=== PATIENT | female | born 1965 | race Caucasian/White ===

== ENCOUNTER 2020-02-24 11:23 | Emergency (ER) | payer OTHER ==
[2020-02-24 11:28] VITALS: BP 142/77; PULSE 80; TEMP 98.2; BMI 31.2
--- NOTE | 2020-02-24 13:12 | PDOC ---
History of Present Illness - General Chief Complaint: Pain Stated Complaint: BURNING SENSATION ON HER CHEST Time Seen by Provider: 02/24/20 11:35 History Source: Patient Exam Limitations: No Limitations - History of Present Illness Initial Comments: 02/24/20 12:55 Patient is a 54-year-old female with history of HTN, gastritis, asthma, depression/anxiety, cholecystectomy, hemorrhoidectomy, here with complaints of generalized chest, bilateral hands and neck burning sensation. Which she describes as [id number] since last night. States she was just sitting when her symptoms started and is associated with feeling a little shaky. She has had some nausea but no vomiting, with dizziness described as double vision. The symptoms have been intermittent since last night. She has had these symptoms in the past last episode of this was in December this year. She is on Zoloft for her anxiety however has not taken it today last dose was yesterday. Denies fever, chills, dysuria. PMD: Dr. Velazquez PMHX: as above PSOCHX: neg etoh, drug, cig ALL: NKDA GENERAL/CONSTITUTIONAL: [No fever or chills. No weakness. No weight change.] HEAD, EYES, EARS, NOSE AND THROAT: [No change in vision. No ear pain or discharge. No sore throat.] CARDIOVASCULAR: [no chest pain or shortness of breath.] RESPIRATORY: [No cough, wheezing, or hemoptysis.] GASTROINTESTINAL: [No nausea, vomiting, diarrhea or constipation. No rectal bleeding.] GENITOURINARY: [No dysuria, frequency, or change in urination.] MUSCULOSKELETAL: [No joint or muscle swelling or pain. No neck or back pain.] SKIN AND BREASTS: [No rash or easy bruising.] NEUROLOGIC: [No headache, vertigo, loss of consciousness, or loss of sensation.] PSYCHIATRIC: [(+) depression or anxiety.] ENDOCRINE: [No increased thirst. No abnormal weight change.] HEMATOLOGIC/LYMPHATIC: [No anemia, easy bleeding, or history of blood clots.] ALLERGIC/IMMUNOLOGIC: [No hives or skin allergy. No latex allergy.] GENERAL: [The patient is awake, alert, and fully oriented, in no acute distress.] HEAD: [Normal with no signs of trauma.] EYES: [Pupils equal, round and reactive to light, extraocular movements intact, sclera anicteric, conjunctiva clear.] ENT: [Ears normal, nares patent, oropharynx clear without exudates. Moist mucous membranes.] NECK: [Normal range of motion, supple without lymphadenopathy, JVD, or masses.] LUNGS: [Breath sounds equal, clear to auscultation bilaterally. No wheezes, and no crackles.] HEART: [Regular rate and rhythm, normal S1 and S2 without murmur, rub.] ABDOMEN: [Soft, nontender, normoactive bowel sounds. No guarding, no rebound. No masses.] EXTREMITIES: [Normal range of motion, no edema. No clubbing or cyanosis. No cords, erythema, or tenderness.] NEUROLOGICAL: [Cranial nerves II through XII grossly intact. Normal speech, normal gait.] PSYCH: [Normal mood, normal affect.] SKIN: [Warm, Dry, normal turgor, no rashes or lesions noted.] Past History - Medical History Allergies/Adverse Reactions: Allergies Allergy/AdvReac Type Severity Reaction Status Date / Time No Known Allergies Allergy Verified 02/24/20 11:27 Home Medications: Ambulatory Orders Amlodipine Besylate [Norvasc -] 5 mg PO DAILY 02/24/20 Montelukast Na [Singulair -] 10 mg PO HS 02/24/20 Pantoprazole Sodium 40 mg PO DAILY 02/24/20 Sertraline HCl [Zoloft] 100 mg PO DAILY 02/24/20 Telmisartan 80 mg PO DAILY 02/24/20 Zolpidem Tartrate 10 mg PO HS 02/24/20 Asthma: Yes COPD: No HTN: Yes - Surgical History Cholecystectomy: Yes - Psycho-Social/Smoking History Smoking History: Never smoked - Substance Abuse Hx (Audit-C & DAST Scrn) How often the patient has a drink containing alcohol: Never Score: In Men: 4 or > Positive; In Women: 3 or > Positive: 0 Screen Result (Pos requires Nsg. Audit-10AR): Negative *Physical Exam - Vital Signs Last Vital Signs Temp Pulse Resp BP Pulse Ox 98.2 F 80 18 142/77 99 02/24/20 11:25 02/24/20 11:25 02/24/20 11:25 02/24/20 11:25 02/24/20 11:25 ED Treatment Course - LABORATORY CBC & Chemistry Diagram: 02/24/20 12:55 02/24/20 12:55 - ADDITIONAL ORDERS Additional order review: Laboratory Results 02/24/20 12:55 Sodium 141 Potassium 4.5 Chloride 109 H Carbon Dioxide 26 Anion Gap 6 L BUN 15.3 Creatinine 0.8 Est GFR (CKD-EPI)AfAm 96.87 Est GFR (CKD-EPI)NonAf 83.58 Random Glucose 101 Calcium 9.2 Total Bilirubin 0.4 AST 19 ALT 23 Alkaline Phosphatase 88 Creatine Kinase 114 Troponin I < 0.02 Total Protein 7.6 Albumin 3.4 02/24/20 12:55 RBC 4.56 MCV 86.5 MCHC 33.1 RDW 15.0 MPV 8.7 Neutrophils % 66.9 Lymphocytes % 22.0 Monocytes % 9.8 Eosinophils % 0.7 Basophils % 0.6 - RADIOLOGY Radiology Studies Ordered: Category Date Time Status CHEST PA & LAT [RAD] Stat Radiology 02/24/20 12:54 Taken Medical Decision Making - Medical Decision Making 02/24/20 12:55 Patient is a 54-year-old female with history of HTN, gastritis, asthma, depression/anxiety, cholecystectomy, hemorrhoidectomy, here with complaints of generalized chest, bilateral hands and neck burning sensation. Which she describes as [id number] since last night. States she was just sitting when her symptoms started and is associated with feeling a little shaky. She has had some nausea but no vomiting, with dizziness described as double vision. The symptoms have been intermittent since last night. She has had these sy mptoms in the past last episode of this was in December this year. She is on Zoloft for her anxiety however has not taken it today last dose was yesterday. Denies fever, chills, dysuria. Symptoms consistent with anxiety however since patient has hypertension will do labs which include troponin x1, EKG, chest x-ray. 02/24/20 13:50 Labs reviewed notes no acute findings troponin is negative. Chest x-ray no acute infiltrates Patient remained stable in the ER I discussed the physical exam findings, ancillary test results and final diagnoses with the patient. I answered all of the patient's questions. The patient was satisfied with the care received and felt comfortable with the discharge plan and treatment plan. The Patient agrees to follow up with the primary care physician within 24-72 hours. Will recommend for patient to go home take her medications as prescribed Discharge - Discharge Information Problems reviewed: Yes Clinical Impression/Diagnosis: Paresthesia, Atypical chest pain Condition: Stable Disposition: HOME - Follow up/Referral Referrals: ON STAFF,NOT [Primary Care Provider] - - Patient Discharge Instructions Patient Printed Discharge Instructions: DI for Atypical Chest Pain Additional Instructions: Your Discharge Instructions: You must call primary care physician within 24 hours to arrange follow-up. Return to the Emergency Department with any new, persistent or worsening symptoms, for fever, chills, SOB, dizziness or any other concerning changes that may occur. - Post Discharge Activity
[2020-02-24 13:18] LABS: BASO % 0.6 % (0-2.0); EOS % 0.7 % (0-4.5); HEMATOCRIT 39.4 % (32.4-45.2); MCH 28.6 pg (25.7-33.7); MCHC 33.1 g/dl (32.0-36.0); MEAN CELL VOLUME 86.5 fl (80-96); MEAN PLT VOLUME 8.7 fl (7.5-11.1); MONO % 9.8 % (3.8-10.2); NEUT % 66.9 % (42.8-82.8); PLATELET COUNT 202 K/MM3 (134-434); RBC 4.56 M/mm3 (3.60-5.2); WHITE BLOOD COUNT 7.1 K/mm3 (4.0-10.0)
[2020-02-24 13:39] LABS: ALBUMIN 3.4 g/dl (3.4-5.0); ALK PHOS 88 U/L (45-117); ANION GAP 6 MMOL/L (8-16); BILIRUBIN,TOTAL 0.4 mg/dL (0.2-1); BLOOD UREA NITROGEN 15.3 mg/dL (7-18); CALCIUM 9.2 mg/dL (8.5-10.1); CHLORIDE 109 mmol/L (98-107); CO2 26 mmol/L (21-32); CREATININE 0.8 mg/dL (0.55-1.3); GLUCOSE,RANDOM 101 mg/dL (74-106); POTASSIUM 4.5 mmol/L (3.5-5.1); SGOT/AST 19 U/L (15-37); SGPT/ALT 23 U/L (13-61); SODIUM 141 mmol/L (136-145); TOT PROT 7.6 g/dl (6.4-8.2)
--- NOTE | 2020-02-25 09:37 | EKG ---
Test Reason : Blood Pressure : / mmHG Vent. Rate : 078 BPM Atrial Rate : 078 BPM P-R Int : 124 ms QRS Dur : 082 ms QT Int : 372 ms P-R-T Axes : 047 028 015 degrees QTc Int : 424 ms NORMAL SINUS RHYTHM NORMAL ECG NO PREVIOUS ECGS AVAILABLE Confirmed by Lisandra Andres ([id number]) on 02/25/2020 9:37:48 AM Referred By: Confirmed By:Lisandra Andres
== END 2020-02-24 14:01 | disposition home or self-care (01) ==
LOC: JER 11:23
DX: R20.2 Paresthesia of skin (principal); R07.89 Other chest pain
CPT/HCPCS: 36415; 71046-TC-FY; 80053; 82550; 84484; 85025; 93005; 93010; 99285-25

== ENCOUNTER 2022-10-14 23:31 | Observation (INO) | payer OTHER ==
[2022-10-14 23:51] VITALS: BMI 32.2
[2022-10-15 01:52] LABS: ALBUMIN 3.6 g/dl (3.4-5.0); BLOOD UREA NITROGEN 17.4 mg/dL (7-18); CALCIUM 9.1 mg/dL (8.5-10.1)
[2022-10-15 01:55] LABS: CREATININE 0.7 mg/dL (0.55-1.3)
[2022-10-15 01:57] LABS: BILIRUBIN,TOTAL 0.4 mg/dL (0.2-1); TOT PROT 7.7 g/dl (6.4-8.2)
[2022-10-15 02:00] LABS: BASO % 0.5 % (0-2.0); EOS % 1.2 % (0-4.5); HEMATOCRIT 39.8 % (32.4-45.2); HEMOGLOBIN 12.8 GM/dL (10.7-15.3); LYMPH % 29.3 % (8-40); MCH 27.2 pg (25.7-33.7); MCHC 32.1 g/dl (32.0-36.0); MEAN CELL VOLUME 84.6 fl (80-96); MONO % 9.3 % (3.8-10.2); NEUT % 59.7 % (42.8-82.8); PLATELET COUNT 204 10^3/uL (134-434); RDW 15.6 % (11.6-15.6); WHITE BLOOD COUNT 8.7 K/mm3 (4.0-10.0)
[2022-10-15 03:40] LABS: ACTIVATED PTT 31.7 SECONDS (25.2-36.5); INR 1.05 (0.83-1.09); PROTHROMBIN TIME (PATIENT) 12.2 SEC (9.7-13.0)
[2022-10-15] MEDS ORDERED: MAG HYDROX/AL HYDROX/SIMETH 30 ML UNIT-DOSE CUP PO ONE (05:53)
[2022-10-15] MEDS ORDERED: FAMOTIDINE 20 MG TABLET PO ONE (05:54)
[2022-10-15] MEDS ORDERED: SIMETHICONE 40 MG/0.6 ML BOTTLE PO ONE (05:55)
[2022-10-15] MEDS ORDERED: SIMETHICONE 80 MG TAB.CHEW (FP) ONE (06:05)
[2022-10-15 06:49] VITALS: BP 156/65; PULSE 59; RESP 18; TEMP 97.8
== END 2022-10-15 08:00 | disposition home or self-care (01) ==
LOC: JER 23:31 → JERBED 10-15 05:34
PROVIDERS: ADMIT Internal Medicine; ATTEND Internal Medicine
DX: R07.89 Other chest pain (principal); I10 Essential (primary) hypertension; E78.5 Hyperlipidemia, unspecified; R73.03 Prediabetes; J45.909 Unspecified asthma, uncomplicated; F41.9 Anxiety disorder, unspecified; F32.A Depression, unspecified
CPT/HCPCS: 0241U-QW; 36415; 71046-TC-FY; 80053; 80061; 83036; 84443; 84484; 85025; 85610; 85730; 93005; 93010; 99285-25; G0378

== ENCOUNTER 2025-05-23 17:17 | Emergency (ER) | payer OTHER ==
[2025-05-23 17:31] VITALS: BMI 34.6
[2025-05-23] MEDS ORDERED: ONDANSETRON 4 MG TABLET PO ONE (18:43)
[2025-05-23] MEDS ORDERED: FAMOTIDINE 10 MG TABLET ONE (18:43)
[2025-05-23] MEDS ORDERED: MAG HYDROX/AL HYDROX/SIMETH 30 ML UNIT-DOSE CUP ONE (18:43)
[2025-05-23] MEDS ORDERED: ACETAMINOPHEN INJECTION 100 ML ONE (18:43)
[2025-05-23] MEDS: FAMOTIDINE 10 MG TABLET PO ONE (18:50)
[2025-05-23] MEDS: MAG HYDROX/AL HYDROX/SIMETH 30 ML UNIT-DOSE CUP PO ONE (18:50)
[2025-05-23] MEDS: ACETAMINOPHEN 1000 MG/100 ML BAG IVPB ONE (18:51)
[2025-05-23] MEDS: ONDANSETRON 4 MG TABLET PO ONE (18:51)
[2025-05-23] MEDS: SODIUM CHLORIDE 0.9% 500 ML INFUS.BAG IV ONE (18:51)
[2025-05-23 19:03] LABS: ABSOLUTE IMMATURE GRANULOCYTES 0.02 x10^3/uL (0.0-0.031); BASOPHILS # 0.02 x10^3/uL (0.01-0.08); EOSINOPHIL % 1.1 % (0.7-5.8); EOSINOPHILS # 0.09 x10^3/uL (0.04-0.36); MCHC 32.3 g/dl (32.2-35.5); MEAN CELL VOLUME 87.4 fl (79.4-94.8); MEAN PLT VOLUME 10.3 fl (9.4-12.3); MONOCYTE # 0.67 x10^3/uL (0.24-0.86); MONOCYTE % 8.3 % (4.7-12.5); RDW 14.1 % (12.3-16.6)
[2025-05-23 19:26] LABS: GLUCOSE,RANDOM 97.0 mg/dL (74-106); TOT PROT 8.2 g/dl (6.4-8.2)
[2025-05-23 19:27] LABS: CO2 25.0 mmol/L (21-32)
[2025-05-23 19:29] LABS: ALK PHOS 92.0 U/L (40-150)
[2025-05-23 19:31] LABS: SGOT/AST 21.0 U/L (5-34); SGPT/ALT 13.0 U/L (0-55)
[2025-05-23 19:32] LABS: CREATININE 0.77 mg/dL (0.55-1.3)
[2025-05-23 22:25] VITALS: BP 136/76; PULSE 58; RESP 16; TEMP 97.6
[2025-05-23] MEDS ORDERED: CIPROFLOXACIN 500 MG TABLET (RESTRICTED TO ID) PO ONE (23:11)
[2025-05-23 23:36] LABS: EPI CELLS 25 /uL (0-25.1); HYALINE CASTS 3 /uL (0-3.1); URINE APPEARANCE CLEAR; URINE BACTERIA 271 /uL (0-1359); URINE BILIRUBIN NEGATIVE (NEGATIVE); URINE COLOR YELLOW; URINE GLUCOSE (UA) NEGATIVE (NEGATIVE); URINE KETONE 1+ (NEGATIVE); URINE LEUK ESTERASE NEGATIVE (NEGATIVE); URINE NITRITE NEGATIVE (NEGATIVE); URINE PROTEIN TRACE (NEGATIVE); URINE RBC 32 /uL (0-23.9); URINE UROBILINOGEN 0.2 mg/dL (0.2-1.0)
== END 2025-05-23 23:48 | disposition home or self-care (01) ==
LOC: JER 17:17
PROC: 3E033NZ Introduction of Analgesics, Hypnotics, Sedatives into Peripheral Vein, Percutaneous Approach (ICD-10-PCS; principal; 2025-05-23)
DX: K52.9 Noninfective gastroenteritis and colitis, unspecified (principal); R10.84 Generalized abdominal pain; R11.0 Nausea
CPT/HCPCS: 36415; 71046-TC-FY; 74177-TC; 80053; 81003; 83605; 83690; 83735; 84100; 84484; 85025; 86850; 86900; 86901; 87086; 87637-QW; 93005; 93010; 96374; 99285-25; Q9967